=== PATIENT | male | born 1995 | race Caucasian/White ===

== ENCOUNTER → 2021-07-07 | Outpatient (CLI) | payer OTHER ==
[2021-07-07 16:14] LABS: BODY FLUID RBC 0.009 M/mm3 (0-0); RBC Count, Synovial Fluid 9000 /mm3 (0-0); WBC Count, Synovial Fluid 70 /mm3 (0-180)
[2021-07-07 17:20] LABS: Body Fluid Crystals NEG (NEGATIVE)
[2021-07-07 17:36] LABS: Eos, Synovial Fluid 1 % (0-2); Lymphs, Synovial Fluid 17 % (0-15); Monocytes/Macrophages, Synovia 15 % (0-65); Neutrophils, Synovial Fluid 67 % (0-24)
[2021-07-07 17:40] LABS: Appearance, Synovial Fluid Cloudy (Clear); Color, Synovial Fluid Dark Yellow (None-P Yel)
== END ==
LOC: LAB SHORT 14:30
PROVIDERS: Emergency Medicine
DX: M25.462 Effusion, left knee (principal); L03.116 Cellulitis of left lower limb
CPT/HCPCS: 87070; 87075; 87205; 89051; 89060